=== PATIENT | female | born 1995 | race Caucasian/White ===

== ENCOUNTER 2016-06-06 09:48 | Emergency (ER) | payer OTHER ==
[~2016-06-06] VITALS: Ht 154.9 cm; Wt 52.2 kg
[~2016-06-06 09:48] MED LIST: ABILIFY 5MG5 MG PO; ADDERALL XR30 MG PO; CATAPRES 0.1MG0.1 MG PO; LAMICTAL150 MG PO; LAMOTRIGINE200 M2 PO; LAMOTRIGINE25 MG PO; LEVETIRACETAM500 MG PO; MELATONIN5 M1 PO; NUVARING VAGIN1 EACH VG; WELLBUTRIN100 M1 PO
[2016-06-06 10:14] VITALS: BP 131/97
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
[2016-06-06] MEDS ORDERED: ZOFRAN ODT4 M1 SL (11:29)
== END 2016-06-06 11:40 ==
LOC: ERH 09:48
DX: R56.9 Unspecified convulsions (principal)
CPT/HCPCS: J3101

== ENCOUNTER 2017-11-08 19:09 | Emergency (ER) | payer OTHER ==
[~2017-11-08] VITALS: Ht 157.5 cm; Wt 61.2 kg
[~2017-11-08 19:09] MED LIST changes: +ZOFRAN ODT4 M1 SL
--- NOTE | 2017-11-08 19:26 | ED GI/GU/ABDOMINAL COMPLAINT ---
History of Present Illness General Chief Complaint: Female Urogenital Problems Stated Complaint: POSSIBLE TAMPON STUCK IN VAGINA? Source: patient Exam Limitations: no limitations Vital Signs & Intake/Output Vital Signs & Intake/Output Vital Signs Date Time Temp Pulse Resp B/P B/P Pulse O2 O2 Flow FiO2 Mean Ox Delivery Rate 11/08 2001 98.3 95 18 121/66 98 Room Air Allergies Coded Allergies: carrot (THROAT HURTS 07/10/15) cameron (01/09/16) Reconcile Medications Clonidine (Catapres 0.1MG Tab) 0.1 MG TAB 0.1 MG PO AT BEDTIME insomnia Etonogestrel/Ethinyl Estradiol (Nuvaring Vaginal Ring) 1 EACH VAG.RING 1 EACH VG Q30D CONTROL (Reported) use for 3 weeks, skip for 1 week Lamotrigine 200 MG TABLET 1 TAB PO BID SEIZURES (Reported) Ondansetron (Zofran Odt) 4 MG TAB.RAPDIS 1 TAB SL TID PRN nausea vomiting Triage Nurses Notes Reviewed? yes ? N Is pt currently ? No Onset: Gradual Duration: constant Timing: single episode today Quality/Severity: cramping Severity Numbers: 3 Radiation: no radiation HPI: Patient is a 22-year-old female who presents to emergency room stating that this month she has had 2 menstrual cycles where the last one was approximately 2 weeks ago however she states that 3 days ago she began having another menstrual cycle which is unusual for her, patient states that she's been changing her tampons once a day however today when inserting the tampon she thought there was a retained tampon from either 2 days ago or today due to her feeling as if there was a string from her vagina. Patient states that she looked that up online and became anxious and started having abdominal cramping and mild nausea however she is able tolerate by mouth prior to arrival. Patient denies any vaginal discharge or bleeding dysuria hematuria or vomiting (Surinder Carlson) Past History Travel History Traveled to [place] past 21 day No Medical History Any Pertinent Medical History? see below for history Other Medical Hx: SEIZURE Surgical History Surgical History: non-contributory Family History Family History, If Any: Relation not specified for: *No pertinent family history Hx Contributory? No (Surinder Carlson) Review of Systems Review of Systems Constitutional: Reports: no symptoms. EENTM: Reports: no symptoms. Respiratory: Reports: no symptoms. Cardiovascular: Reports: no symptoms. GI: Reports: see HPI. Genitourinary: Reports: see HPI. Musculoskeletal: Reports: no symptoms. Skin: Reports: no symptoms. Neurological/Psychological: Reports: no symptoms. Hematologic/Endocrine: Reports: no symptoms. Immunologic/Allergic: Reports: no symptoms. All Other Systems: Reviewed and Negative (Surinder Carlson) Physical Exam Physical Exam General Appearance: no apparent distress, alert, awake, comfortable Head: atraumatic Eyes: Bilateral: normal appearance. Ears, Nose, Throat, Mouth: hearing grossly normal, moist mucous membrane Respiratory: normal breath sounds, chest non-tender Gastrointestinal: normal bowel sounds, soft, non-tender Extremities: normal range of motion Neurologic/Psych: no motor/sensory deficits, awake, alert Skin: intact, normal color, warm/dry Comments: - normal external anatomy Using a speculum there is mild vaginal bleeding cervix is closed and nontender no foreign body on physical inspection of the vaginal canal Core Measures ACS in differential dx? No Sepsis Present: No Sepsis Focused Exam Completed? No (Surinder Carlson) Progress Differential Diagnosis: AAA, AMI, appendicitis, biliary colic, bowel obstruction , colon cancer, cholecystitis, diverticulitis, ectopic , endometritis, esophageal varices, gastritis, hepatitis, hernia, hemorrhoids, ischemic bowel, inflamm bowel dis, intrauterine , kidney stone, Ladi-Curtis tear, ovarian cyst, ovarian torsion, pancreatitis, PID/cervicitis, peptic ulcer, PUD/ GERD, perforated viscous, SBO, threatened AB, UTI/pyelo Plan of Care: Orders Procedure Date/time Status HUMAN BETA HCG SCREEN 11/08 2005 Complete COMPREHENSIVE METABOLIC PANEL 11/08 2005 Complete CBC WITHOUT DIFFERENTIAL 11/08 2005 Complete Laboratory Tests 11/08/172028: Anion Gap 12, Estimated GFR > 60, BUN/Creatinine Ratio 14.3, Glucose 85, Calcium 9.5, Total Bilirubin 0.4, AST 19, ALT 24, Alkaline Phosphatase 70, Total Protein 6.9, Albumin 4.7, Globulin 2.2, Albumin/Globulin Ratio 2.1, Total Beta HCG NEGATIVE, CBC w Diff NO MAN DIFF REQ, RBC 4.11 L, MCV 91.1, MCH 30.4, MCHC 33.3 , RDW 11.9, MPV 7.1 L, Gran % 53.4, Lymphocytes % 36.2, Monocytes % 8.3, Eosinophils % 1.6, Basophils % 0.5, Absolute Granulocytes 4.6, Absolute Lymphocytes 3.1, Absolute Monocytes 0.7 H, Absolute Eosinophils 0.1, Absolute Basophils 0 Patient was evaluated for retained foreign body in the vaginal canal and which on inspection I did not see this straining or a tampon or foreign body. Discussed that there could always be a retained foreign body and to have patient follow up with her CRANE ENGINEER which is Dr. Toussiant Patient states that she wanted to leave prior to blood work being resulted I discussed the risks of leaving AGAINST MEDICAL ADVICE patient states that she had LEAVE due to a ride I will call patient if concerns of blood work when a resulted patient was aware of events leading advice as symptoms may worsen she signed AMA form Patient's blood work was resulted showing no remarkable findings Initial ED EKG: none (Surinder Carlson) Departure Departure Disposition: HOME OR SELF CARE Condition: Stable Clinical Impression Primary Impression: Menstrual bleeding problem Secondary Impressions: Abdominal pain Referrals: Unknown (PCP/Family) Additional Instructions: As discussed if symptoms worsen or she develop new concerning symptom return to emergency room. Follow-up tomorrow with YOUR CRANE ENGINEER-DR TOUSSAINT Began over-the- counter Motrin or Tylenol for abdominal cramping menstrual pain Departure Forms: Customer Survey General Discharge Information (Surinder Carlson) PA/SCHOOL OFFICE MANAGER Co-Sign Statement Statement: ED Attending supervision documentation- I saw and evaluated the patient. I have also reviewed all the pertinent lab results and diagnostic results. I agree with the findings and the plan of care as documented in the PA's/SCHOOL OFFICE MANAGER's documentation. x I have reviewed the ED Record and agree with the PA's/SCHOOL OFFICE MANAGER's documentation. [] Additions or exceptions (if any) to the PAs/SCHOOL OFFICE MANAGER's note and plan are summarized below: [] (oB MASCORRO,Hany)
[2017-11-08 20:02] VITALS: BP 121/66
[2017-11-08 20:36] LABS: ABSOLUTE BASOPHIL COUNT 0 /CUMM (0.0-0.2); ABSOLUTE EOSINOPHIL COUNT 0.1 /CUMM (0.0-0.7); ABSOLUTE GRANULOCYTE CT 4.6 /CUMM (1.4-6.5); ABSOLUTE LYMPH COUNT 3.1 /CUMM (1.2-3.4); ABSOLUTE MONOCYTE COUNT 0.7 /CUMM (0.10-0.60); BASOPHIL % 0.5 % (0.0-2.0); EOSINOPHIL % 1.6 % (0-5); GRANULOCYTE % 53.4 % (42.2-75.2); HEMATOCRIT 37.4 % (37-47); MEAN CORPUSCULAR HGB 30.4 PG (27.0-31.0); MEAN CORPUSCULAR HGB CONC 33.3 G/DL (33.0-37.0); MEAN CORPUSCULAR VOLUME 91.1 FL (81.0-99.0); MEAN PLATELET VOLUME 7.1 FL (7.4-10.4); PLATELET COUNT 342 /CUMM (130-400); RBC DISTRIBUTION WIDTH 11.9 % (11.5-14.5); RED BLOOD CELL CT 4.11 /CUMM (4.20-5.40); WHITE BLOOD CELL COUNT 8.7 /CUMM (4.8-10.8)
== END 2017-11-08 20:44 | disposition left against medical advice (07) ==
LOC: ERH
PROVIDERS: Physician Assistant
DX: R10.9 Unspecified abdominal pain (principal); Z71.1 Person with feared health complaint in whom no diagnosis is made